=== PATIENT | male | born 2000 | race Caucasian/White ===

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

== ENCOUNTER → 2022-01-12 12:29 | Outpatient (BNVA) | payer MEDICAID, SELFPAY | PROVIDERS: Family Provider Nurse Practitioner Family; PCP Nurse Practitioner Family; Visit Provider Nurse Practitioner | DX: F39 Unspecified mood [affective] disorder (principal); J30.89 Other allergic rhinitis; E03.2 Hypothyroidism due to medicaments and other exogenous substances; E78.1 Pure hyperglyceridemia | CPT/HCPCS: 80053; 80061; 84443 ==

== ENCOUNTER → 2022-03-08 11:34 | Outpatient (BNVA) | payer MEDICAID, SELFPAY | PROVIDERS: Family Provider Nurse Practitioner Family; PCP Nurse Practitioner Family; Visit Provider Nurse Practitioner Family | DX: K59.09 Other constipation (principal); J30.89 Other allergic rhinitis; Z76.0 Encounter for issue of repeat prescription; E03.2 Hypothyroidism due to medicaments and other exogenous substances; F39 Unspecified mood [affective] disorder; Z00.00 Encounter for general adult medical examination without abnormal findings | CPT/HCPCS: 80053; 80164; 80178; 85025 ==

== ENCOUNTER → 2022-03-11 08:06 | Outpatient (BNVA) | payer MEDICAID, SELFPAY | PROVIDERS: Family Provider Nurse Practitioner Family; PCP Nurse Practitioner Family; Visit Provider Nurse Practitioner Family | DX: E03.2 Hypothyroidism due to medicaments and other exogenous substances (principal); Z00.00 Encounter for general adult medical examination without abnormal findings; K59.09 Other constipation | CPT/HCPCS: 81000 ==

== ENCOUNTER → 2022-03-14 09:45 | Outpatient (BNVA) | payer MEDICAID, SELFPAY | PROVIDERS: Family Provider Nurse Practitioner Family; PCP Nurse Practitioner Family; Visit Provider Family Medicine | DX: Z11.1 Encounter for screening for respiratory tuberculosis (principal) | CPT/HCPCS: 86580 ==

== ENCOUNTER → 2022-07-27 09:36 | Outpatient (BNVA) | payer MEDICAID, SELFPAY | PROVIDERS: Family Provider Nurse Practitioner Family; PCP Nurse Practitioner Family; Visit Provider Nurse Practitioner | DX: F91.3 Oppositional defiant disorder (principal); E78.1 Pure hyperglyceridemia; E03.2 Hypothyroidism due to medicaments and other exogenous substances; L30.9 Dermatitis, unspecified | CPT/HCPCS: 80053; 80061; 80164; 80178; 84443; 85025 ==

== ENCOUNTER → 2023-01-13 11:17 | Outpatient (BNVA) | payer MEDICAID, SELFPAY | PROVIDERS: Family Provider Nurse Practitioner Family; PCP Nurse Practitioner Family; Visit Provider Nurse Practitioner Family | DX: E03.2 Hypothyroidism due to medicaments and other exogenous substances (principal); F39 Unspecified mood [affective] disorder; F91.3 Oppositional defiant disorder | CPT/HCPCS: 80053; 80164; 80178; 84443; 85025 ==

== ENCOUNTER → 2023-03-14 08:43 | Outpatient (BNVA) | payer MEDICAID, SELFPAY | PROVIDERS: Family Provider Nurse Practitioner Family; PCP Nurse Practitioner Family; Visit Provider Nurse Practitioner | DX: E78.1 Pure hyperglyceridemia (principal); E03.2 Hypothyroidism due to medicaments and other exogenous substances | CPT/HCPCS: 80053; 80061; 80164; 80178; 84443; 85025; 86580 ==

== ENCOUNTER → 2023-03-17 09:51 | Outpatient (BNVA) | payer MEDICAID, SELFPAY | PROVIDERS: Family Provider Nurse Practitioner Family; PCP Nurse Practitioner Family; Visit Provider Nurse Practitioner | DX: E78.1 Pure hyperglyceridemia (principal); E03.2 Hypothyroidism due to medicaments and other exogenous substances | CPT/HCPCS: 81000 ==

== ENCOUNTER → 2023-07-31 13:21 | Outpatient (BNVA) | payer MEDICAID, SELFPAY | PROVIDERS: Family Provider Nurse Practitioner Family; PCP Nurse Practitioner Family; Visit Provider Nurse Practitioner | DX: L40.0 Psoriasis vulgaris (principal); E03.2 Hypothyroidism due to medicaments and other exogenous substances; L03.90 Cellulitis, unspecified; R23.8 Other skin changes | CPT/HCPCS: 80053; 84443; 85025 ==

== ENCOUNTER → 2023-09-18 09:03 | Outpatient (BNVA) | payer MEDICAID, SELFPAY | PROVIDERS: Family Provider Nurse Practitioner Family; PCP Nurse Practitioner; Visit Provider Nurse Practitioner | DX: E03.2 Hypothyroidism due to medicaments and other exogenous substances (principal); F91.3 Oppositional defiant disorder; F39 Unspecified mood [affective] disorder | CPT/HCPCS: 80053; 80164; 80178; 84443; 85025 ==

== ENCOUNTER → 2023-09-27 15:49 | Outpatient (BNVA) | payer MEDICAID, SELFPAY | PROVIDERS: Family Provider Nurse Practitioner Family; PCP Nurse Practitioner; Visit Provider Nurse Practitioner | DX: F39 Unspecified mood [affective] disorder (principal); E78.1 Pure hyperglyceridemia; E55.9 Vitamin D deficiency, unspecified; E03.2 Hypothyroidism due to medicaments and other exogenous substances | CPT/HCPCS: 82306; 82607 ==

== ENCOUNTER → 2024-02-21 13:31 | Outpatient (BNVA) | payer MEDICAID, SELFPAY | PROVIDERS: Family Provider Nurse Practitioner Family; PCP Nurse Practitioner; Visit Provider Nurse Practitioner Family | DX: L40.0 Psoriasis vulgaris (principal) | CPT/HCPCS: 99204 ==

== ENCOUNTER → 2024-02-26 08:38 | Outpatient (BNVA) | payer MEDICAID, SELFPAY | PROVIDERS: Family Provider Nurse Practitioner Family; PCP Nurse Practitioner; Visit Provider Nurse Practitioner | DX: E03.2 Hypothyroidism due to medicaments and other exogenous substances (principal); E78.1 Pure hyperglyceridemia; L40.0 Psoriasis vulgaris; E55.9 Vitamin D deficiency, unspecified | CPT/HCPCS: 80053; 80061; 80076; 82306; 83735; 84443; 85025; 85651; 86140; 86705; 86706; 86709; 86803; 87340 ==

== ENCOUNTER 2024-03-01 08:36 | Outpatient (CLI) | payer MEDICAID, SELFPAY ==
[2024-03-01 09:04] LABS: Basophils % 0.5 %; Eosinophils # 0.2 10^3/uL (0.0-0.8); Hematocrit 37.6 % (37-53); Lymphocytes # 2.2 10^3/uL (0.8-4.8); Lymphocytes % 25.8 %; Mean Corpuscular HGB Conc 31.9 g/dL (30-55); Mean Corpuscular Hemoglobin 30.6 pg (27-33); Mean Corpuscular Volume 95.9 fl (82-101); Mean Platelet Volume 9.2 fL (7.4-10.4); Monocytes # 0.6 10^3/uL (0.2-0.9); Monocytes % 7.1 %; Neutrophils # 5.58 10^3/uL (1.8-7.7); Neutrophils % 64.1 %; Nucleated Red Blood Cells % 0 %; Platelet Count 297 10^3/cmm (157-399); Red Blood Count 3.92 10^6/uL (3.85-5.65); Red Cell Distribution Width 12.9 % (12.1-15.1); White Blood Count 8.69 10^3/uL (3.29-11.43)
[2024-03-01 09:18] LABS: Alanine Aminotransferase 12 U/L (0-41); Albumin Level 4.4 g/dL (3.5-5.2); Alkaline Phosphatase 58 U/L (40-130); Aspartate Amino Transferase 11 U/L (0-40); Globulin 2.9 g/dL (1.3-4.6); Total Bilirubin 0.2 mg/dL (0.15-1.2); Total Protein 7.3 g/dL (6.6-8.7)
[2024-03-01 09:38] LABS: Hepatitis A Antibody IgM Non-Reactive (Nonreactive); Hepatitis B Core AB, Total Non-Reactive (Nonreactive); Hepatitis B Surface AB < 3.5 (11.5-1000); Hepatitis B Surface Antigen Non-Reactive (Nonreactive); Hepatitis C Virus Antibody Non-Reactive (Nonreactive)
[2024-03-06 12:20] LABS: Quantiferon Mitogen 7.96 IU/mL; Quantiferon Nil 0.01 IU/mL; Quantiferon Plus TB1 0.06 IU/mL; Quantiferon Plus TB2 0.12 IU/mL; Quantiferon TB Gold NEGATIVE (NEGATIVE)
== END 2024-03-01 08:37 | disposition home or self-care (01) ==
PROVIDERS: PCP Nurse Practitioner; Visit Provider Nurse Practitioner Family
DX: L40.0 Psoriasis vulgaris (principal)
CPT/HCPCS: 36415; 80076; 85025; 86480; 86705; 86706; 86709; 86803; 87340

== ENCOUNTER → 2024-03-18 10:33 | Outpatient (BNVA) | payer MEDICAID, SELFPAY | PROVIDERS: PCP Nurse Practitioner; Visit Provider Nurse Practitioner | DX: Z79.899 Other long term (current) drug therapy (principal); Z71.89 Other specified counseling; E78.1 Pure hyperglyceridemia; J30.89 Other allergic rhinitis; E03.2 Hypothyroidism due to medicaments and other exogenous substances; K59.09 Other constipation; F39 Unspecified mood [affective] disorder | CPT/HCPCS: 80164; 80178 ==

== ENCOUNTER → 2024-03-19 10:22 | Outpatient (BNVA) | payer MEDICAID, SELFPAY | PROVIDERS: PCP Nurse Practitioner; Visit Provider Nurse Practitioner | DX: F39 Unspecified mood [affective] disorder (principal); Z79.899 Other long term (current) drug therapy | CPT/HCPCS: 81000 ==

== ENCOUNTER → 2024-04-23 15:29 | Outpatient (BNVA) | payer MEDICAID, SELFPAY | PROVIDERS: PCP Nurse Practitioner; Visit Provider Nurse Practitioner | DX: L40.0 Psoriasis vulgaris (principal); M25.542 Pain in joints of left hand | CPT/HCPCS: 73130 ==

== ENCOUNTER → 2024-06-18 13:06 | Outpatient (BNVA) | payer MEDICAID, SELFPAY | PROVIDERS: PCP Nurse Practitioner; Visit Provider Nurse Practitioner Family | DX: L40.0 Psoriasis vulgaris (principal); L21.8 Other seborrheic dermatitis; Z79.899 Other long term (current) drug therapy | CPT/HCPCS: 99214 ==

== ENCOUNTER → 2024-08-01 12:12 | Outpatient (BNVA) | payer MEDICAID, SELFPAY | PROVIDERS: PCP Nurse Practitioner; Visit Provider Nurse Practitioner | DX: E78.1 Pure hyperglyceridemia (principal); E03.2 Hypothyroidism due to medicaments and other exogenous substances; J30.89 Other allergic rhinitis | CPT/HCPCS: 80053; 80061; 84443; 86003; 86008 ==

== ENCOUNTER → 2024-09-12 10:26 | Outpatient (BNVA) | payer MEDICAID, SELFPAY | PROVIDERS: PCP Nurse Practitioner; Visit Provider Nurse Practitioner | DX: E78.1 Pure hyperglyceridemia (principal); E03.2 Hypothyroidism due to medicaments and other exogenous substances | CPT/HCPCS: 80053; 80061; 80164; 80178; 81000; 84443; 85025 ==

== ENCOUNTER → 2024-12-16 13:39 | Outpatient (BNVA) | payer MEDICAID, SELFPAY | PROVIDERS: PCP Nurse Practitioner; Visit Provider Nurse Practitioner Family | DX: L40.0 Psoriasis vulgaris (principal); Z79.899 Other long term (current) drug therapy; D22.5 Melanocytic nevi of trunk | CPT/HCPCS: 99213 ==

== ENCOUNTER 2025-03-06 10:18 | Outpatient (CLI) | payer MEDICAID, SELFPAY ==
[2025-03-10 18:01] LABS: Quantiferon Mitogen 7.98 IU/mL; Quantiferon Nil 0.01 IU/mL; Quantiferon Plus TB1 0.02 IU/mL; Quantiferon Plus TB2 0.01 IU/mL; Quantiferon TB Gold NEGATIVE (NEGATIVE)
== END 2025-03-06 10:19 | disposition home or self-care (01) ==
PROVIDERS: PCP Nurse Practitioner; Visit Provider Nurse Practitioner Family
DX: L40.0 Psoriasis vulgaris (principal); Z79.899 Other long term (current) drug therapy; D22.5 Melanocytic nevi of trunk
CPT/HCPCS: 36415; 86480; 99213

== ENCOUNTER → 2025-03-24 09:31 | Outpatient (BNVA) | payer MEDICAID, SELFPAY | PROVIDERS: PCP Nurse Practitioner; Visit Provider Nurse Practitioner | DX: E78.1 Pure hyperglyceridemia (principal); E03.2 Hypothyroidism due to medicaments and other exogenous substances; F91.3 Oppositional defiant disorder | CPT/HCPCS: 80053; 80061; 80164; 80178; 81000; 84443; 85025 ==

== ENCOUNTER → 2025-09-15 11:11 | Outpatient (BNVA) | payer MEDICAID, SELFPAY | PROVIDERS: PCP Nurse Practitioner; Visit Provider Nurse Practitioner | DX: F39 Unspecified mood [affective] disorder (principal); E03.2 Hypothyroidism due to medicaments and other exogenous substances | CPT/HCPCS: 80053; 80061; 80164; 80178; 84443; 85025 ==

== ENCOUNTER → 2025-09-29 09:21 | Outpatient (BNVA) | payer MEDICAID, SELFPAY | PROVIDERS: PCP Nurse Practitioner; Visit Provider Nurse Practitioner Family | DX: L40.0 Psoriasis vulgaris (principal); Z79.899 Other long term (current) drug therapy; D22.5 Melanocytic nevi of trunk | CPT/HCPCS: 99213 ==